=== PATIENT | female | born 1960 | race African-American/Black ===

== ENCOUNTER 2017-07-20 12:58 | Emergency (ER) | payer OTHER ==
[2017-07-20 13:15] VITALS: BP 143/91; PULSE 87; TEMP 98; BMI 30.9
--- NOTE | 2017-07-20 15:12 | PDOC ---
History of Present Illness - General Chief Complaint: Pain, Acute Stated Complaint: NECK PAIN, SHOULDER PAIN Time Seen by Provider: 07/20/17 14:40 History Source: Patient Exam Limitations: No Limitations - History of Present Illness Initial Comments: 07/20/17 15:08 Patient is a 57-year-old female with history of hypertension and right rotator cuff surgery back up yesterday with pain to right lateral neck no pain to arm, good range of motion to shoulder, pain is localized to the neck going into the trapezius. Past Medical History: [Denies]. Allergies: Ibuprofen, Naprosyn, latex Medications: [See medication list] Family History: Non-contributory Social History: Denies smoking, alcohol use, or IVDU Review of Systems GENERAL/CONSTITUTIONAL: [No fever or chills. No weakness. No weight change.] HEAD, EYES, EARS, NOSE AND THROAT: [No change in vision. No ear pain or discharge. No sore throat. ] CARDIOVASCULAR: [No chest pain or shortness of breath.] RESPIRATORY: [No cough, wheezing, or hemoptysis.] GASTROINTESTINAL: [No nausea, vomiting, diarrhea or constipation. No rectal bleeding.] GENITOURINARY: [No dysuria, frequency, or change in urination.] MUSCULOSKELETAL: [No joint or muscle swelling or pain. No back pain, right lateral neck pain] SKIN : [No rash or easy bruising.] NEUROLOGIC: [No headache, vertigo, loss of consciousness, or loss of sensation.] Physical Exam: GENERAL: [The patient is awake, alert, and fully oriented, in no acute distress. ] EYES: [Pupils equal, round and reactive to light, extraocular movements intact, sclera anicteric, conjunctiva clear.] ENT: [Ears normal, nares patent, oropharynx clear without exudates. Moist mucous membranes. No uvula deviation] NECK: [Normal range of motion, supple without lymphadenopathy, JVD, or masses. Pain to right lateral neck and trapezius no spasm noted, no deformity] LUNGS: [Breath sounds equal, clear to auscultation bilaterally. No wheezes, and no crackles.] HEART: [Regular rate and rhythm, normal S1 and S2 without murmur, rub or gallop. ] ABDOMEN: [Soft, nontender, normoactive bowel sounds. No guarding, no rebound. No masses. No bruising or abrasions] MUSCULOSKELETAL: [Normal range of motion, no edema. No clubbing or cyanosis. No cords, erythema, or tenderness. Good range of motion to right shoulder.] NEUROLOGICAL: [Cranial nerves II through XII grossly intact. Normal speech, normal gait.] PSYCH: [Normal mood, normal affect.] SKIN: [Warm, Dry, normal turgor, no rashes or lesions noted.] Past History - Past Medical History Allergies/Adverse Reactions: Allergies Allergy/AdvReac Type Severity Reaction Status Date / Time ibuprofen Allergy Severe lip/tongue Verified 07/20/17 13:11 swelling naproxen sodium [From Aleve] Allergy Severe lip/tongue Verified 07/20/17 13:11 swelling latex Allergy Mild Rash Verified 07/20/17 13:11 Home Medications: Ambulatory Orders Amlodipine Besylate [Norvasc -] 10 mg PO DAILY 02/05/13 Metoprolol Succinate [Toprol XL -] 50 mg PO HS #0 tab.sr.24h 02/08/13 Cholecalciferol (Vitamin D3) [Vitamin D -] 500 unit PO WEEKLY 06/23/16 Glimepiride [Amaryl] 1 mg PO DAILY 06/23/16 Cyclobenzaprine HCl [Flexeril 10 mg] 10 mg PO TID PRN #15 tablet MDD 3 07/20/17 CVA: No COPD: No DVT: No Diabetes: Yes HTN: Yes Other medical history: MIGRANES - Surgical History Abdominal Surgery: Yes Orthopedic Surgery: Yes (right shoulder) - Immunization History Immunization Up to Date: Yes - Suicide/Smoking/Psychosocial Hx Smoking Status: No Smoking History: Never smoked Have you smoked in the past 12 months: No Number of Cigarettes Smoked Daily: 0 Information on smoking cessation initiated: No Hx Alcohol Use: No Drug/Substance Use Hx: No Substance Use Type: None Hx Substance Use Treatment: No *Physical Exam - Vital Signs Last Vital Signs Temp Pulse Resp BP Pulse Ox 98.0 F 87 16 143/91 97 07/20/17 13:12 07/20/17 13:12 07/20/17 13:12 07/20/17 13:12 07/20/17 13:12 Medical Decision Making - Medical Decision Making 07/20/17 15:12 A/P: Patient with right lateral neck pain consistent with torticollis patient is allergic to anti-inflammatories will DC on Flexeril to continue Tylenol area 8 hours. Follow-up with PMD on Monday if pain persists if any increased pain shortness of breath or chest pain return to ER. Patient is well-appearing, strict instructions for follow-up given to patient. 07/20/17 15:20 *DC/Admit/Observation/Transfer Diagnosis at time of Disposition: Torticollis - Discharge Dispostion Disposition: HOME Condition at time of disposition: Stable Admit: No - Prescriptions Prescriptions: Cyclobenzaprine HCl [Flexeril 10 mg] 10 mg PO TID PRN #15 tablet MDD 3 PRN Reason: Pain - Referrals Referrals: Lisa Donaldson MD [Primary Care Provider] - - Patient Instructions Printed Discharge Instructions: DI for Torticollis Additional Instructions: 1. Please return to the emergency department with any numbness, tingling, weakness, numbness or tingling to groin or legs, or loss of bowel or bladder function. 2. Use pain medication as ordered. 3. Please is to followup in the office of Dr. Escobar for evaluation within a week if no improvement. 4. Ice or heat 5. Refrain from lifting anything above 10 pounds, until pain resolved. - Post Discharge Activity Forms/Work/School Notes: Back to Work
== END 2017-07-20 15:15 | disposition home or self-care (01) ==
LOC: JERFT 12:58
DX: M43.6 Torticollis (principal); I10 Essential (primary) hypertension; E11.9 Type 2 diabetes mellitus without complications; Z79.84 Long term (current) use of oral hypoglycemic drugs
CPT/HCPCS: 99281-25

== ENCOUNTER 2017-10-16 14:00 | Emergency (ER) | payer OTHER ==
[2017-10-16 14:05] VITALS: TEMP 98.6; BMI 30.9
--- NOTE | 2017-10-16 14:05 | PDOC ---
Rapid Medical Evaluation Chief Complaint: Headache Time Seen by Provider: 10/16/17 14:03 Medical Evaluation: Allergies Allergy/AdvReac Type Severity Reaction Status Date / Time ibuprofen Allergy Severe lip/tongue Verified 10/16/17 14:02 swelling naproxen sodium [From Aleve] Allergy Severe lip/tongue Verified 10/16/17 14:02 swelling latex Allergy Mild Rash Verified 10/16/17 14:02 10/16/17 14:03 I have performed a brief in-person evaluation of this patient. The patient presents with a chief complaint of: 6/10 right sided headache for 3 days Pertinent physical exam findings: CNII-XII grossly intact. No drift, droop, or slurred speech I have ordered the following: CTH, Tylenol The patient will proceed to the ED for further evaluation. Discharge Disposition - Diagnosis Headache - Referrals - Patient Instructions - Post Discharge Activity
[2017-10-16] MEDS ORDERED: ACETAMINOPHEN 500 MG TABLET (FP) PO ONE (14:06)
--- NOTE | 2017-10-16 15:09 | PDOC ---
History of Present Illness - General Chief Complaint: Headache Stated Complaint: HEADACHE Time Seen by Provider: 10/16/17 14:03 History Source: Patient Exam Limitations: No Limitations - History of Present Illness Initial Comments: CHIEF COMPLAINT: 57 y/o female with history of migraine headaches here for a headache different from her usual x 3 days. HISTORY OF PRESENT ILLNESS: The patient states this current headache is on the right side of her face and radiated around to the right side of her face and the back of her head. She denies f/c, neck pain, changes in vision/hearing, cough, n/v/d, Cp, SOB, abd pain and all other symptoms. She takes tylenol for pain only because she's allergic to everything else. Vital signs on arrival are within normal limits. REVIEW OF SYSTEMS: GENERAL/CONSTITUTIONAL: No fever/chills. No weakness. No weight change. HEAD, EYES, EARS, NOSE AND THROAT: No change in vision. No ear pain or discharge. No sore throat. CARDIOVASCULAR: No chest pain or shortness of breath. RESPIRATORY: No cough, wheezing, or hemoptysis. GASTROINTESTINAL: No abd pain, nausea, vomiting, diarrhea. GENITOURINARY: No dysuria, frequency, or change in urination. MUSCULOSKELETAL: No joint or muscle swelling or pain. No neck or back pain. SKIN: No rash or easy bruising. NEUROLOGIC: + headache. No vertigo, loss of consciousness, or loss of sensation. PHYSICAL EXAM: GENERAL: The patient is awake, alert, and fully oriented, in no acute distress. She is well appearing, ambulatory and pleasant. HEAD: Normal with no signs of trauma. ENT: Pupils equal, round and reactive to light, extraocular movements intact, sclera anicteric, conjunctiva clear. No pain with EOMs. No entrapment. LUNGS: Clear to auscultation bilaterally. Normal excursion. No respiratory distress or use of accessory muscles. CV: RRR, S1/S2, no MRG. Cap refill < 2 sec. ABDOMEN: Soft, non-distended, non-tender even to deep palpation, no hepatomegaly or splenomegaly, no masses. EXTREMITIES: Normal range of motion, no edema. NEUROLOGICAL: Normal speech, normal gait. CN II-XII grossly intact. SKIN: Warm, dry, normal turgor, no rashes or lesions noted. Past History - Past Medical History Allergies/Adverse Reactions: Allergies Allergy/AdvReac Type Severity Reaction Status Date / Time ibuprofen Allergy Severe lip/tongue Verified 10/16/17 14:02 swelling naproxen sodium [From Aleve] Allergy Severe lip/tongue Verified 10/16/17 14:02 swelling latex Allergy Mild Rash Verified 10/16/17 14:02 Home Medications: Ambulatory Orders Amlodipine Besylate [Norvasc -] 10 mg PO DAILY 02/05/13 Metoprolol Succinate [Toprol XL -] 50 mg PO HS #0 tab.sr.24h 02/08/13 Cholecalciferol (Vitamin D3) [Vitamin D -] 500 unit PO WEEKLY 06/23/16 Glimepiride [Amaryl] 1 mg PO DAILY 06/23/16 Cyclobenzaprine HCl [Flexeril 10 mg] 10 mg PO TID PRN #15 tablet MDD 3 07/20/17 CVA: No COPD: No DVT: No Diabetes: Yes HTN: Yes - Surgical History Abdominal Surgery: Yes (tubal lig, ectopic ,) Orthopedic Surgery: Yes (right shoulder) - Immunization History Immunization Up to Date: Yes - Suicide/Smoking/Psychosocial Hx Smoking Status: No Smoking History: Never smoked Have you smoked in the past 12 months: No Number of Cigarettes Smoked Daily: 0 Information on smoking cessation initiated: No Hx Alcohol Use: No Drug/Substance Use Hx: No Substance Use Type: None Hx Substance Use Treatment: No Neuro Specific PMHX - Complaint Specific PMHX Glaucoma: No Herniated Disk: No Laminectomy: No Migraine: Yes Multiple Sclerosis: No TIA: No *Physical Exam - Vital Signs Last Vital Signs Temp Pulse Resp BP Pulse Ox 98.6 F 85 18 142/82 100 10/16/17 14:02 10/16/17 14:02 10/16/17 14:02 10/16/17 14:02 10/16/17 14:02 ED Treatment Course - Medications Given in the ED: ED Medications Discontinued Medications Generic Name Dose Route Start Last Admin Trade Name Freq PRN Reason Stop Dose Admin Acetaminophen 975 mg 10/16/17 14:06 10/16/17 14:07 Tylenol - PO 10/16/17 14:07 975 mg ONCE ONE Administration Medical Decision Making - Medical Decision Making A/P: 57 y/o female with headache that is different from her usual chronic headaches. She was given PO tylenol and sent for a head CT from triage. Head CT IMPRESSION: No significant interval change from 07/2016 or acute intracranial pathology. The patient was given her results and is very excited to go home. Instructed her to f/u with her PCP within 1 week and return to the ER with any worsening or concerning symptoms. The patient verbalizes understanding of all instructions, has no further questions and is awaiting discharge. *DC/Admit/Observation/Transfer Diagnosis at time of Disposition: Headache Qualifiers: Headache type: unspecified Headache chronicity pattern: acute headache Intractability: not intractable Qualified Code(s): R51 - Headache - Discharge Dispostion Disposition: HOME Condition at time of disposition: Good - Referrals - Patient Instructions Printed Discharge Instructions: DI for Headache Additional Instructions: Discharge Instructions: -The Cat Scan of your head was negative -Continue to take Tylenol if needed for headache -Drink at least 64oz of water daily -Follow up with your doctor within 1 week -Return to the ER with any worsening or concerning symptoms. - Post Discharge Activity Forms/Work/School Notes: Back to Work
[2017-10-16 17:24] VITALS: BP 136/77; PULSE 67
== END 2017-10-16 16:50 | disposition home or self-care (01) ==
LOC: JER 14:00
DX: G43.909 Migraine, unspecified, not intractable, without status migrainosus (principal); I10 Essential (primary) hypertension; E11.9 Type 2 diabetes mellitus without complications; Z79.84 Long term (current) use of oral hypoglycemic drugs
CPT/HCPCS: 70450-TC; 99282-25

== ENCOUNTER 2021-01-21 09:12 | Observation (INO) | payer OTHER ==
[2021-01-21 10:32] LABS: BASO % 1.3 % (0-2.0); EOS % 4.1 % (0-4.5); HEMATOCRIT 42.9 % (32.4-45.2); LYMPH % 40.2 % (8-40); MCH 25.3 pg (25.7-33.7); MCHC 32.6 g/dl (32.0-36.0); MEAN CELL VOLUME 77.7 fl (80-96); MEAN PLT VOLUME 8.1 fl (7.5-11.1); MONO % 8.5 % (3.8-10.2); NEUT % 45.9 % (42.8-82.8); PLATELET COUNT 231 10^3/uL (134-434); RBC 5.53 M/mm3 (3.60-5.2); RDW 16.4 % (11.6-15.6); WHITE BLOOD COUNT 6.2 K/mm3 (4.0-10.0)
[2021-01-21 10:39] LABS: INR 0.98 (0.83-1.09); PROTHROMBIN TIME (PATIENT) 12.1 SEC (9.7-13.0)
[2021-01-21 10:41] LABS: CHLORIDE 105 mmol/L (98-107); SODIUM 139 mmol/L (136-145)
[2021-01-21 10:44] LABS: ALBUMIN 3.9 g/dl (3.4-5.0); ANION GAP 8 MMOL/L (8-16); BLOOD UREA NITROGEN 22.6 mg/dL (7-18); CALCIUM 9.4 mg/dL (8.5-10.1); CO2 26 mmol/L (21-32); GLUCOSE,RANDOM 251 mg/dL (74-106)
[2021-01-21 10:47] LABS: SGOT/AST 12 U/L (15-37); SGPT/ALT 23 U/L (13-61)
[2021-01-21 10:48] LABS: CREATININE 1.2 mg/dL (0.55-1.3)
[2021-01-21 10:49] LABS: BILIRUBIN,TOTAL 0.3 mg/dL (0.2-1); TOT PROT 8.2 g/dl (6.4-8.2)
[2021-01-21 10:50] LABS: ALK PHOS 81 U/L (45-117)
[2021-01-21] MEDS ORDERED: dilTIAZem HCL 60 MG TABLET PO ONE (10:50)
[2021-01-21] MEDS ORDERED: dilTIAZem HCL 60 MG TABLET ONE (11:00)
[2021-01-21] MEDS ORDERED: ACETAMINOPHEN 325 MG TABLET (FP) PO PRN (11:40)
[2021-01-21 12:47] LABS: CHOLESTEROL 152 mg/dL (50-200)
[2021-01-21 12:48] LABS: LDL CHOLESTEROL (ONLY SJRH) 61 mg/dL (5-100); TRIGLYCERIDES 183 mg/dL (0-150)
[2021-01-21 12:49] LABS: HDL CHOLESTEROL 56 mg/dL (40-60)
[2021-01-21] MEDS: INSULIN SLIDING SCALE (NOVOLOG) 1 VIAL SQ SCH (20:28)
[2021-01-21 20:41] VITALS: BMI 31.4
[2021-01-21] MEDS: APIXABAN 5 MG TABLET PO SCH (21:04)
[2021-01-21] MEDS ORDERED: ATORVASTATIN CA 40 MG TABLET (FP) PO SCH (22:00)
[2021-01-21] MEDS ORDERED: SENNOSIDES 8.6MG TABLET (FP) PO SCH (22:00)
[2021-01-22] MEDS: INSULIN SLIDING SCALE (NOVOLOG) 1 VIAL SQ SCH ×2 (06:05→11:53)
[2021-01-22 07:04] LABS: EOS % 4.1 % (0-4.5); HEMATOCRIT 41.3 % (32.4-45.2); HEMOGLOBIN 13.4 GM/dL (10.7-15.3); MCH 25.4 pg (25.7-33.7); MCHC 32.4 g/dl (32.0-36.0); MEAN CELL VOLUME 78.2 fl (80-96); MEAN PLT VOLUME 8.5 fl (7.5-11.1); MONO % 9.3 % (3.8-10.2); NEUT % 43.6 % (42.8-82.8); PLATELET COUNT 228 10^3/uL (134-434); RBC 5.28 M/mm3 (3.60-5.2); RDW 16.4 % (11.6-15.6); WHITE BLOOD COUNT 6.2 K/mm3 (4.0-10.0)
[2021-01-22 07:20] LABS: ALBUMIN 3.6 g/dl (3.4-5.0)
[2021-01-22 07:21] LABS: BLOOD UREA NITROGEN 19.6 mg/dL (7-18); MAGNESIUM 2.4 mg/dL (1.8-2.4)
[2021-01-22 07:24] LABS: CREATININE 0.8 mg/dL (0.55-1.3); PHOSPHOROUS 3.9 mg/dL (2.5-4.9)
[2021-01-22 07:25] LABS: BILIRUBIN,TOTAL 0.4 mg/dL (0.2-1); TOT PROT 7.7 g/dl (6.4-8.2)
[2021-01-22] MEDS ORDERED: INSULIN (LEVEMIR) 100 UNITS/ML UNITS SQ SCH (10:00)
[2021-01-22] MEDS ORDERED: PANTOPRAZOLE 40 MG TABLET PO SCH (10:00)
[2021-01-22] MEDS ORDERED: ENOXAPARIN NA (PORCINE) 40 MG/0.4 ML DISP.SYRIN SQ SCH (10:00)
[2021-01-22] MEDS ORDERED: amLODIPine BESYLATE 10 MG TABLET (FP) PO SCH (10:00)
[2021-01-22] MEDS: APIXABAN 5 MG TABLET PO SCH (10:24)
[2021-01-22 13:48] VITALS: BP 132/94; PULSE 64; TEMP 98.2
== END 2021-01-22 13:30 | disposition home or self-care (01) ==
LOC: JER 09:12 → INTOOBSV 11:05 → JERBED 11:05 → UNDOADMOB 11:05 → J2W 19:37 → JERBED 19:37 → J2W 01-22 09:00 → JERBED 01-22 09:00
PROVIDERS: ADMIT Internal Medicine; ATTEND Nurse Practitioner Family
PROC: 3E013VG Introduction of Insulin into Subcutaneous Tissue, Percutaneous Approach (ICD-10-PCS; principal; 2021-01-22)
DX: I48.91 Unspecified atrial fibrillation (principal); R61 Generalized hyperhidrosis; E66.8 Other obesity; I10 Essential (primary) hypertension; Z68.31 Body mass index [BMI] 31.0-31.9, adult; E11.9 Type 2 diabetes mellitus without complications; Z88.8 Allergy status to other drugs, medicaments and biological substances; Z91.040 Latex allergy status
CPT/HCPCS: 36415; 71046-TC-FY; 80053; 80061; 82550; 82962; 83036; 83735; 84100; 84439; 84443; 84484; 85025; 85610; 93005; 93010; 93306-TC; 96372; 99285-25; C9803; G0378; U0003; U0005

== ENCOUNTER 2023-07-21 09:26 | Emergency (ER) | payer OTHER ==
[2023-07-21 09:48] VITALS: RESP 18; TEMP 98.9; BMI 32.8
[2023-07-21] MEDS ORDERED: ACETAMINOPHEN 325 MG TABLET (FP) ONE (10:22)
[2023-07-21] MEDS: ACETAMINOPHEN 325 MG TABLET (FP) PO ONE (10:27)
[2023-07-21 11:41] LABS: EPITHELIAL CELLS 0-5 /hpf
[2023-07-21 12:03] VITALS: BP 176/106; PULSE 103
[2023-07-21] MEDS: SODIUM CHLORIDE 0.9% 500 ML INFUS.BAG IV ONE (12:15)
[2023-07-21] MEDS: METOCLOPRAMIDE HCL INJECTION 10 MG/2 ML VIAL IVPB ONE (12:15)
[2023-07-21] MEDS ORDERED: METOCLOPRAMIDE HCL INJECTION 10 MG/2 ML VIAL ONE (12:17)
== END 2023-07-21 14:40 | disposition home or self-care (01) ==
LOC: FER 09:26
PROC: 3E033GC Introduction of Other Therapeutic Substance into Peripheral Vein, Percutaneous Approach (ICD-10-PCS; principal; 2023-07-21)
DX: R51.9 Headache, unspecified (principal); R53.83 Other fatigue; R50.9 Fever, unspecified; M79.10 Myalgia, unspecified site; R35.0 Frequency of micturition; Z20.822 Contact with and (suspected) exposure to COVID-19
CPT/HCPCS: 0241U-QW; 81003; 81015; 87086; 99284-25

== ENCOUNTER 2023-08-10 14:02 | Observation (INO) | payer OTHER ==
[2023-08-10 15:17] VITALS: BMI 29.2
[2023-08-10 16:24] LABS: BASO % 0.8 % (0-2.0); EOS % 2.3 % (0-4.5); HEMOGLOBIN 13.5 GM/dL (10.7-15.3); LYMPH % 34.8 % (8-40); MCH 26.3 pg (25.7-33.7); MEAN CELL VOLUME 79.7 fl (80-96); MEAN PLT VOLUME 8.9 fl (7.5-11.1); MONO % 8.2 % (3.8-10.2); NEUT % 53.9 % (42.8-82.8); PLATELET COUNT 211 10^3/uL (134-434); RBC 5.14 M/mm3 (3.60-5.2); RDW 15.2 % (11.6-15.6); WHITE BLOOD COUNT 7.4 K/mm3 (4.0-10.0)
[2023-08-10 16:44] LABS: POTASSIUM 4.8 mmol/L (3.5-5.1)
[2023-08-10 16:46] LABS: ALBUMIN 3.7 g/dl (3.4-5.0); CALCIUM 9.9 mg/dL (8.5-10.1)
[2023-08-10 16:47] LABS: BLOOD UREA NITROGEN 9.9 mg/dL (7-18)
[2023-08-10 16:51] LABS: BILIRUBIN,TOTAL 0.5 mg/dL (0.2-1); TOT PROT 7.6 g/dl (6.4-8.2)
[2023-08-10 16:54] LABS: N-TERMINAL BNP 36.7 pg/ml (5-125)
[2023-08-10] MEDS ORDERED: INSULIN (NOVOLOG) ASPART 100 UNITS/ML 10ML VIAL ONE (21:36)
[2023-08-10] MEDS ORDERED: APIXABAN 5 MG TABLET ONE (22:33)
[2023-08-10] MEDS ORDERED: methylPREDNISolone NA SUCC 40 MG/1 ML VIAL ONE (22:33)
[2023-08-10] MEDS: methylPREDNISolone NA SUCC 40 MG/1 ML VIAL IVPUSH SCH (22:38)
[2023-08-10] MEDS: APIXABAN 5 MG TABLET PO SCH (22:38)
[2023-08-11] MEDS: INSULIN (NOVOLOG) ASPART 100 UNITS/ML 10ML VIAL SQ ONE ×3 (00:04→07:27)
[2023-08-11] MEDS: ACETAMINOPHEN 1000 MG/100 ML BAG IVPB PRN (01:40)
[2023-08-11 04:57] VITALS: TEMP 97.7
[2023-08-11] MEDS ORDERED: INSULIN ASPART SLIDING SCALE (NOVOLOG) 1 VIAL SQ SCH (07:00)
[2023-08-11 07:28] LABS: HEMATOCRIT 44.4 % (32.4-45.2); HEMOGLOBIN 14.2 GM/dL (10.7-15.3); MEAN CELL VOLUME 81.3 fl (80-96); MEAN PLT VOLUME 9.3 fl (7.5-11.1); PLATELET COUNT 222 10^3/uL (134-434); RBC 5.47 M/mm3 (3.60-5.2); RDW 14.9 % (11.6-15.6); WHITE BLOOD COUNT 6.2 K/mm3 (4.0-10.0)
[2023-08-11 07:40] LABS: POTASSIUM 4.5 mmol/L (3.5-5.1)
[2023-08-11 07:43] LABS: CALCIUM 9.6 mg/dL (8.5-10.1)
[2023-08-11 07:44] LABS: ALBUMIN 3.7 g/dl (3.4-5.0)
[2023-08-11 07:47] LABS: PHOSPHOROUS 4.3 mg/dL (2.5-4.9)
[2023-08-11 07:48] LABS: BILIRUBIN,TOTAL 0.5 mg/dL (0.2-1)
[2023-08-11] MEDS ORDERED: LOSARTAN POTASSIUM 50 MG TABLET ONE (09:08)
[2023-08-11] MEDS ORDERED: amLODIPine BESYLATE 10 MG TABLET (FP) ONE (09:08)
[2023-08-11] MEDS ORDERED: APIXABAN 5 MG TABLET ONE (09:08)
[2023-08-11] MEDS ORDERED: LEVALBUTEROL HCL 0.31 MG/3 ML VIAL.NEB IH ONE (09:08)
[2023-08-11] MEDS ORDERED: methylPREDNISolone NA SUCC 40 MG/1 ML VIAL ONE (09:09)
[2023-08-11] MEDS: LEVALBUTEROL HCL 0.31 MG/3 ML VIAL.NEB IH SCH (09:52)
[2023-08-11] MEDS: FLUTICASONE/SALMETEROL (WIXELA) 100 MCG/50 MCG DISKUS IH SCH (09:52)
[2023-08-11] MEDS ORDERED: LOSARTAN 50MG/HCTZ 12.5MG 1 TAB PO SCH (10:00)
[2023-08-11] MEDS ORDERED: ENOXAPARIN NA (PORCINE) 40 MG/0.4 ML DISP.SYRIN SQ SCH (10:00)
[2023-08-11] MEDS ORDERED: MAGNESIUM SULF 50% (8.12 MEQ/2 ML-1 GM VIAL) ONE (11:36)
[2023-08-11] MEDS ORDERED: INSULIN (LEVEMIR) 100 UNITS/ML UNITS SQ ONE (11:37)
[2023-08-11] MEDS ORDERED: ACETAMINOPHEN/CAFFEINE/BUTALBITAL 1 TAB ONE (11:37)
[2023-08-11] MEDS: amLODIPine BESYLATE 10 MG TABLET (FP) PO SCH (12:04)
[2023-08-11] MEDS: LOSARTAN POTASSIUM 50 MG TABLET PO SCH (12:04)
[2023-08-11] MEDS: ACETAMINOPHEN/CAFFEINE/BUTALBITAL 1 TAB PO ONE (12:05)
[2023-08-11] MEDS: INSULIN (LEVEMIR) 100 UNITS/ML UNITS SQ SCH (12:05)
[2023-08-11] MEDS: INSULIN ASPART SLIDING SCALE (NOVOLOG) 1 VIAL SQ SCH (12:06)
[2023-08-11] MEDS: MAGNESIUM SULF 50% (8.12 MEQ/2 ML-1 GM VIAL) IVPB ONE (12:06)
[2023-08-11 14:19] VITALS: BP 120/79; PULSE 91; RESP 19
[2023-08-11] MEDS ORDERED: ATORVASTATIN CA 40 MG TABLET (FP) PO SCH (22:00)
[2023-08-11] MEDS ORDERED: INSULIN (LEVEMIR) 100 UNITS/ML UNITS SQ SCH (22:00)
== END 2023-08-11 15:00 | disposition home or self-care (01) ==
LOC: JER 14:02 → JERBED 17:43
PROVIDERS: ADMIT Internal Medicine; ATTEND Internal Medicine
PROC: 3E033NZ Introduction of Analgesics, Hypnotics, Sedatives into Peripheral Vein, Percutaneous Approach (ICD-10-PCS; principal; 2023-08-10)
PROC: 3E013VG Introduction of Insulin into Subcutaneous Tissue, Percutaneous Approach (ICD-10-PCS; 2023-08-10)
PROC: 3E033GC Introduction of Other Therapeutic Substance into Peripheral Vein, Percutaneous Approach (ICD-10-PCS; 2023-08-10)
DX: J96.01 Acute respiratory failure with hypoxia (principal); I10 Essential (primary) hypertension; E78.5 Hyperlipidemia, unspecified; J45.901 Unspecified asthma with (acute) exacerbation; E11.65 Type 2 diabetes mellitus with hyperglycemia; I48.91 Unspecified atrial fibrillation; H40.9 Unspecified glaucoma; Z88.8 Allergy status to other drugs, medicaments and biological substances; Z91.040 Latex allergy status
CPT/HCPCS: 0241U-QW; 36415; 71045-TC-FY; 80053; 80061; 82962; 83036; 83735; 83880; 84100; 84439; 84443; 84484; 85025; 85027; 85379; 93005; 93010; 93306-TC; 93971-TC; 99285-25; G0378; J0131